=== PATIENT | male | born 1940 | race Caucasian/White ===

== ENCOUNTER 2016-11-19 11:50 | Inpatient (IN) | payer OTHER ==
[~2016-11-19] VITALS: Ht 170.2 cm; Wt 85.3 kg
[2016-11-19 11:58] VITALS: BP 108/83; PULSE 138; RESP 22; TEMP 97.2; O2SAT 93
[2016-11-19] MEDS ORDERED: NS 500 ML IV ONE ×2 (12:30→14:15)
[2016-11-19 12:51] LABS: HEMATOCRIT 48.2 % (36-54); HEMOGLOBIN 15.2 g/dL (14.0-18.0); MEAN CORPUSCULAR HEMOGLOBIN 29 pg (27-31); MEAN CORPUSCULAR HGB CONC 32 % (32-36); MEAN CORPUSCULAR VOLUME 92 fL (79.0-98.0); PLATELET COUNT (AUTO) 231 K/uL (130-430); RED BLOOD CELL COUNT(AUTO) 5.23 MIL/uL (4.2-6.2); RED CELL DISTRIBUTION WIDTH 13.2 % (9.0-15.0); WHITE BLOOD COUNT (AUTO) 15.1 K/uL (4.8-10.8)
[2016-11-19 13:06] LABS: ANION GAP 8 (5-15); CHLORIDE 106 mmol/L (98-107); GLUCOSE 152 mg/dL (70-99); POTASSIUM 3.9 mmol/L (3.5-5.1); SODIUM SERUM 139 mmol/L (136-145); UREA NITROGEN, BLOOD 41 mg/dL (8-21)
[2016-11-19 13:07] LABS: INR 1.2 (0.80-1.20)
[2016-11-19 13:10] LABS: ALANINE AMINOTRANSFERASE 25 U/L (12-78); ALBUMIN 3.8 g/dL (3.4-4.8); ASPARTATE AMINOTRANSFERASE 21 U/L (10-37); LIPASE 133 U/L (73-393); TOTAL BILIRUBIN 0.9 mg/dL (0.0-1.0); TOTAL PROTEIN, SERUM 7.9 g/dL (6.4-8.3)
[2016-11-19 13:23] LABS: ATYPICAL LYMPHOCYTES % 0 % (0-0); BAND % (MANUAL) 36 % (0-6); BASOPHILS % (MANUAL) 0 % (0-2); EOSINOPHILS % (MANUAL) 0 % (0-7); LYMPHOCYTES % (MANUAL) 8 % (20-46); MONOCYTES % (MANUAL) 11 % (0-11)
[2016-11-19 13:46] LABS: BILIRUBIN,URINE 1+ (NEGATIVE); BLOOD, URINE 2+ (NEGATIVE); CLARITY/URINE CLEAR (CLEAR); COLOR,URINE YELLOW (YELLOW); GLUCOSE,URINE NEGATIVE (NEGATIVE); KETONES,URINE 1+ (NEGATIVE); LEUKOCYTE ESTERASE ,URINE TRACE (NEGATIVE); NITRITE, URINE NEGATIVE (NEGATIVE); PH,URINE 5.5 (5.0-8.0); PROTEIN URINE TRACE (NEGATIVE); UROBILINOGEN,URINE 0.2 (0.2-1.0)
[2016-11-19] MEDS ORDERED: LEVO75TA7 PO (13:52)
[2016-11-19] MEDS ORDERED: ASPI-1063 PO (13:52)
[2016-11-19] MEDS ORDERED: CLOP75TA2 PO (13:52)
[2016-11-19 13:54] LABS: BACTERIA,URINE FEW /HPF (None Seen); MUCUS,URINE 1+ /LPF (None Seen)
[2016-11-19] MEDS ORDERED: ROSU10TA PO (13:55)
[2016-11-19] MEDS ORDERED: METO25TA3 PO (13:55)
[2016-11-19] MEDS ORDERED: PRO40 PO (13:55)
[2016-11-19] MEDS ORDERED: PIPERACILLIN/TAZO 3.375 GM in NS 50 ML IV ONE (14:00)
[2016-11-19] MEDS ORDERED: PIPERACILLIN/TAZOBACTAM 3.375 GM/VIAL (ZOSYN) IV ONE (14:25)
[2016-11-19] MEDS ORDERED: IPRATROPIUM/ALBUTEROL SULFATE 3 ML AMPUL.NEB INH PRN (15:00)
[2016-11-19] MEDS ORDERED: ONDANSETRON HCL 4 MG/2 ML VIAL IVP PRN (15:00)
[2016-11-19 15:26] VITALS: BP 117/75; PULSE 98; RESP 20; TEMP 99; O2SAT 95
[2016-11-19 15:28] VITALS: BP 117/75; PULSE 98; RESP 20; TEMP 99; O2SAT 95
[2016-11-19] MEDS ORDERED: AZITHROMYCIN 500 MG in NS 250 ML IV ONE (16:00)
[2016-11-19] MEDS ORDERED: cefTRIAXone 1 GM IVPB PREMIX 50 ML IV ONE (16:00)
[2016-11-19] MEDS: POTASSIUM CHLORIDE 20 MEQ in NACL 0.9% 1,000 ML IV SCH (16:09)
[2016-11-19 16:41] VITALS: BP 104/67; PULSE 93; RESP 18; TEMP 99
[2016-11-19] MEDS ORDERED: ASPIRIN 81 MG TABLET(ECOTRIN) PO ONE (17:30)
[2016-11-19] MEDS ORDERED: GASTROGRAFIN 120 ML ONE (18:44)
[2016-11-19 20:41] VITALS: BP 124/79; PULSE 89; RESP 17; TEMP 98.9; O2SAT 95
[2016-11-20 00:45] VITALS: BP 111/67; PULSE 94; RESP 19; TEMP 97.6; O2SAT 93
[2016-11-20 04:24] VITALS: BP 109/61; PULSE 90; RESP 19; TEMP 97.3; O2SAT 99
[2016-11-20] MEDS: POTASSIUM CHLORIDE 20 MEQ in NACL 0.9% 1,000 ML IV SCH (04:38)
[2016-11-20 06:14] LABS: BASOPHILS % (AUTO) 0.4 % (0.0-2.0); EOSINOPHILS # (AUTO) 0.4 K/uL (0.0-0.4); EOSINOPHILS % (AUTO) 3.1 % (0.0-4.0); HEMATOCRIT 39.8 % (36-54); HEMOGLOBIN 13.2 g/dL (14.0-18.0); LYMPHOCYTES # (AUTO) 1.3 K/uL (1.0-5.5); LYMPHOCYTES % (AUTO) 11.1 % (20.5-51.5); MEAN CORPUSCULAR HEMOGLOBIN 30 pg (27-31); MEAN CORPUSCULAR HGB CONC 33 % (32-36); MEAN CORPUSCULAR VOLUME 91 fL (79.0-98.0); MONOCYTES # (AUTO) 1.3 K/uL (0.0-1.0); MONOCYTES % (AUTO) 11.9 % (1.7-9.3); NEUTROPHILS # (AUTO) 8.3 K/uL (1.8-7.7); NEUTROPHILS % (AUTO) 73.5 % (40.0-70.0); PLATELET COUNT (AUTO) 175 K/uL (130-430); RED BLOOD CELL COUNT(AUTO) 4.39 MIL/uL (4.2-6.2); RED CELL DISTRIBUTION WIDTH 13.4 % (9.0-15.0); WHITE BLOOD COUNT (AUTO) 11.3 K/uL (4.8-10.8)
[2016-11-20] MEDS: LEVOTHYROXINE SODIUM 0.075 MG TABLET PO SCH (06:18)
[2016-11-20 06:21] LABS: ALANINE AMINOTRANSFERASE 18 U/L (12-78); ALBUMIN 3.1 g/dL (3.4-4.8); ANION GAP 6 (5-15); ASPARTATE AMINOTRANSFERASE 15 U/L (10-37); CALCIUM 8.9 mg/dL (8.4-11.0); CHLORIDE 114 mmol/L (98-107); CREATININE 1.24 mg/dL (0.55-1.30); GLUCOSE 111 mg/dL (70-99); SODIUM SERUM 146 mmol/L (136-145); TOTAL BILIRUBIN 0.8 mg/dL (0.0-1.0); TOTAL PROTEIN, SERUM 6.5 g/dL (6.4-8.3); UREA NITROGEN, BLOOD 30 mg/dL (8-21)
[2016-11-20] MEDS ORDERED: MEPERIDINE HCL/PF 100 MG/ML AMP ONE (07:56)
[2016-11-20] MEDS ORDERED: MIDAZOLAM HCL 5 MG/5 ML VIAL ONE (07:56)
[2016-11-20] MEDS ORDERED: SIMETHICONE 40 MG/0.6 ML ML ONE (07:57)
[2016-11-20 08:00] VITALS: BP 117/70; PULSE 81; RESP 17; TEMP 98.2; O2SAT 97
[2016-11-20] MEDS ORDERED: MEPERIDINE HCL/PF 100 MG/ML AMP IV ONE (08:44)
[2016-11-20] MEDS ORDERED: MIDAZOLAM HCL 5 MG/5 ML VIAL IVP ONE ×2 (08:46→08:48)
[2016-11-20] MEDS: METOPROLOL SUCCINATE 25 MG TAB.SR.24H (TOPROL XL) PO SCH (09:00)
[2016-11-20] MEDS: SIMVASTATIN 20 MG TABLET PO SCH (09:00)
[2016-11-20] MEDS ORDERED: CLOPIDOGREL BISULFATE 75 MG TABLET PO SCH (09:00)
[2016-11-20] MEDS ORDERED: ROSUVASTATIN CALCIUM 5 MG/TAB (CRESTOR) PO SCH (09:00)
[2016-11-20] MEDS: ASPIRIN 81 MG TABLET(ECOTRIN) PO SCH (09:00)
[2016-11-20] MEDS: PANTOPRAZOLE SODIUM 40 MG TAB PO SCH (09:00)
[2016-11-20 12:30] VITALS: BP 114/71; PULSE 74; RESP 17; TEMP 97.6; O2SAT 95
[2016-11-20] MEDS: KCL 20 mEq in 0.45% NS 1000 mL 1,000 ML IV SCH (14:42)
[2016-11-20 16:06] VITALS: BP 117/66; PULSE 78; RESP 18; TEMP 96.8; O2SAT 97
[2016-11-20 19:58] VITALS: BP 124/73; PULSE 76; RESP 20; TEMP 98; O2SAT 100
[2016-11-20] MEDS: cefTRIAXone 1 GM IVPB PREMIX 50 ML IV SCH (20:18)
[2016-11-20] MEDS: AZITHROMYCIN 500 MG in NS 250 ML IV SCH (21:19)
[2016-11-21] VITALS (7 sets, daily range): BP systolic 99–126; BP diastolic 63–80; PULSE 65–86; RESP 16–22; TEMP 97.4–99; O2SAT 94–98
[2016-11-21] MEDS: KCL 20 mEq in 0.45% NS 1000 mL 1,000 ML IV SCH ×2 (06:07→20:24)
[2016-11-21 06:27] LABS: ANION GAP 3 (5-15); CALCIUM 8.7 mg/dL (8.4-11.0); CHLORIDE 110 mmol/L (98-107); CREATININE 1.08 mg/dL (0.55-1.30); GLUCOSE 97 mg/dL (70-99); PHOSPHORUS 3.1 mg/dL (2.7-4.5); POTASSIUM 3.7 mmol/L (3.5-5.1); SODIUM SERUM 140 mmol/L (136-145); UREA NITROGEN, BLOOD 21 mg/dL (8-21)
[2016-11-21 06:34] LABS: BASOPHILS # (AUTO) 0.1 K/uL (0.0-0.2); BASOPHILS % (AUTO) 0.9 % (0.0-2.0); EOSINOPHILS # (AUTO) 1.1 K/uL (0.0-0.4); EOSINOPHILS % (AUTO) 11.2 % (0.0-4.0); HEMATOCRIT 36.9 % (36-54); HEMOGLOBIN 12.3 g/dL (14.0-18.0); LYMPHOCYTES # (AUTO) 1.6 K/uL (1.0-5.5); LYMPHOCYTES % (AUTO) 15.3 % (20.5-51.5); MEAN CORPUSCULAR HEMOGLOBIN 30 pg (27-31); MEAN CORPUSCULAR HGB CONC 33 % (32-36); MEAN CORPUSCULAR VOLUME 91 fL (79.0-98.0); MONOCYTES # (AUTO) 0.9 K/uL (0.0-1.0); MONOCYTES % (AUTO) 9.3 % (1.7-9.3); NEUTROPHILS # (AUTO) 6.5 K/uL (1.8-7.7); NEUTROPHILS % (AUTO) 63.3 % (40.0-70.0); PLATELET COUNT (AUTO) 170 K/uL (130-430); RED BLOOD CELL COUNT(AUTO) 4.05 MIL/uL (4.2-6.2); RED CELL DISTRIBUTION WIDTH 13.4 % (9.0-15.0); WHITE BLOOD COUNT (AUTO) 10.2 K/uL (4.8-10.8)
[2016-11-21] MEDS: LEVOTHYROXINE SODIUM 0.075 MG TABLET PO SCH (07:04)
[2016-11-21] MEDS: SIMVASTATIN 20 MG TABLET PO SCH (08:57)
[2016-11-21] MEDS: ASPIRIN 81 MG TABLET(ECOTRIN) PO SCH (08:57)
[2016-11-21] MEDS: PANTOPRAZOLE SODIUM 40 MG TAB PO SCH (08:58)
[2016-11-21] MEDS: METOPROLOL SUCCINATE 25 MG TAB.SR.24H (TOPROL XL) PO SCH (08:58)
[2016-11-21] MEDS: cefTRIAXone 1 GM IVPB PREMIX 50 ML IV SCH (20:24)
[2016-11-21] MEDS: AZITHROMYCIN 500 MG in NS 250 ML IV SCH (21:22)
[2016-11-22] VITALS: BP 111/76; PULSE 68; RESP 18; TEMP 98.9; O2SAT 95
[2016-11-22 04:00] VITALS: BP 112/64; PULSE 61; RESP 20; TEMP 99; O2SAT 96
[2016-11-22] MEDS: LEVOTHYROXINE SODIUM 0.075 MG TABLET PO SCH (06:07)
[2016-11-22 08:00] VITALS: BP 119/63; PULSE 74; RESP 17; TEMP 97.2; O2SAT 94
[2016-11-22] MEDS: SIMVASTATIN 20 MG TABLET PO SCH (08:36)
[2016-11-22] MEDS: ASPIRIN 81 MG TABLET(ECOTRIN) PO SCH (08:37)
[2016-11-22] MEDS: METOPROLOL SUCCINATE 25 MG TAB.SR.24H (TOPROL XL) PO SCH (08:37)
[2016-11-22] MEDS ORDERED: PANTOPRAZOLE SODIUM 40 MG TAB PO SCH (09:00)
[2016-11-22] MEDS ORDERED: CLARITHROMYCIN 500 MG TABLET PO SCH (09:00)
[2016-11-22] MEDS ORDERED: AMOXICILLIN 500 MG CAPSULE PO SCH (09:00)
[2016-11-22 11:35] VITALS: BP 101/56; PULSE 64; RESP 19; TEMP 97.6; O2SAT 91
[2016-11-22 13:07] VITALS: Ht 170.2 cm; Wt 85.3 kg
[2016-11-22 14:57] VITALS: BP 110/67; PULSE 76; RESP 18; TEMP 97.2; O2SAT 97
[2016-11-22 15:54] VITALS: BP 111/62; PULSE 65; RESP 16; TEMP 97.5; O2SAT 98
== END 2016-11-22 15:40 | disposition home or self-care (01) | DRG 871 ==
LOC: SED 11:50 → STU 14:46
PROVIDERS: ADMIT Specialist; ATTEND Specialist
PROC: 0DB68ZX Excision of Stomach, Via Natural or Artificial Opening Endoscopic, Diagnostic (ICD-10-PCS; 2016-11-20)
PROC: 0DB98ZX Excision of Duodenum, Via Natural or Artificial Opening Endoscopic, Diagnostic (ICD-10-PCS; principal; 2016-11-20 08:30)
DX: A41.9 Sepsis, unspecified organism (principal); J18.9 Pneumonia, unspecified organism; K56.60 Unspecified intestinal obstruction; K22.10 Ulcer of esophagus without bleeding; E86.0 Dehydration; E78.5 Hyperlipidemia, unspecified; E78.00 Pure hypercholesterolemia, unspecified; E03.9 Hypothyroidism, unspecified; I71.4 Abdominal aortic aneurysm, without rupture; I25.10 Atherosclerotic heart disease of native coronary artery without angina pectoris; K80.20 Calculus of gallbladder without cholecystitis without obstruction; I10 Essential (primary) hypertension; K21.9 Gastro-esophageal reflux disease without esophagitis; K29.70 Gastritis, unspecified, without bleeding; B96.81 Helicobacter pylori [H. pylori] as the cause of diseases classified elsewhere; Z86.718 Personal history of other venous thrombosis and embolism; Z79.01 Long term (current) use of anticoagulants; Z86.711 Personal history of pulmonary embolism; Z95.5 Presence of coronary angioplasty implant and graft; Z90.49 Acquired absence of other specified parts of digestive tract; Z91.041 Radiographic dye allergy status; Z79.82 Long term (current) use of aspirin; Z79.899 Other long term (current) drug therapy
CPT/HCPCS: 36415; 43239; 71010; 74250-TC; 78226; 80048; 80053; 81000-TC; 83605; 83690-TC; 83735-TC; 84100-TC; 85007; 85025; 85027; 85610-TC; 87040-TC; 87081; 87086; 88305; 88312; 88313; 93005; 96365; 99285; A9537; J0456; J0696; J2175; J2250; J2543; J3480; J7030; J7040; J7050; Q9963

== ENCOUNTER 2017-05-01 07:06 | Day surgery (SDC) | payer OTHER ==
[~2017-05-01] VITALS: Ht 170.2 cm; Wt 86.2 kg
[~2017-05-01 07:06] MED LIST: ASPI-1063 PO; LEVO75TA7 PO; METO25TA3 PO; ROSU10TA PO
[2017-05-01] MEDS ORDERED: SIMETHICONE 40 MG/0.6 ML ML ONE (07:11)
[2017-05-01] MEDS: MIDAZOLAM HCL 5 MG/5 ML VIAL ONE ×3 (09:23→09:33)
[2017-05-01] MEDS: MEPERIDINE HCL/PF 100 MG/ML AMP ONE ×2 (09:23→09:25)
[2017-05-01 15:34] VITALS: BP_SYST 100
== END 2017-05-01 10:55 | disposition home or self-care (01) ==
LOC: SDS 07:06 → SMU 07:07 → SDS 10:55
PROVIDERS: ATTEND Internal Medicine Gastroenterology
DX: D12.5 Benign neoplasm of sigmoid colon (principal); D12.2 Benign neoplasm of ascending colon; D12.0 Benign neoplasm of cecum; D12.4 Benign neoplasm of descending colon; K57.30 Diverticulosis of large intestine without perforation or abscess without bleeding; K64.8 Other hemorrhoids; Z86.010 Personal history of colon polyps
CPT/HCPCS: 45380; 45385; 88305; J2175; J2250; 45384